=== PATIENT | male | born 1945 | race Caucasian/White ===

== ENCOUNTER 2017-03-31 01:54 | Emergency (ER) | payer MEDICARE ==
[~2017-03-31 01:54] MED LIST: ASPI325T24 PO; CARV12.5 PO; CHOL50006 PO; ENAL5TAB98 PO; PRED1%O RIGHT EYE; PROT40TA PO; ZOCO40TA PO; ZYRT10TA12 PO
[2017-03-31 01:59] VITALS: BP 164/88; PULSE 82; RESP 16; TEMP 98; O2SAT 96
[2017-03-31] MEDS ORDERED: LEVO50TA4 PO (02:20)
[2017-03-31] MEDS ORDERED: CETI10CA3 PO (02:20)
[2017-03-31] MEDS ORDERED: ESSE250T PO (02:20)
[2017-03-31] MEDS ORDERED: LOSA25TA PO (02:20)
[2017-03-31] MEDS ORDERED: VITA1000 PO (02:20)
[2017-03-31] MEDS ORDERED: CARV12.52 PO (02:20)
[2017-03-31] MEDS ORDERED: PANT40TA3 PO (02:20)
[2017-03-31] MEDS ORDERED: ASPI-183 PO (02:20)
[2017-03-31] MEDS ORDERED: LEVO25TA4 PO (02:20)
[2017-03-31] MEDS ORDERED: COQ150CA PO (02:20)
[2017-03-31] MEDS ORDERED: oxyCODONE/ACETAMINOPHEN 5 MG/325 MG TAB PO ONE (02:30)
--- NOTE | 2017-03-31 02:37 | PD ---
HPI Chief Complaint: Musculoskeletal Complaint Time Seen by Provider: 02:20 Travel History International Travel<30 days: No Contact w/Intl Traveler<30days: No Traveled to known affect area: No History of Present Illness HPI 71yo M with PMH of CAD here with c/o left knee pain that radiates up to his inner thigh. States pain has been there for a few days but worst today. Also feels a little pain in left hip. Pain is sharp, worst with movement. Pt does have a recent drive from [place] 3 weeks ago. Denies any fever, cough, chest pain, sob, n/v, abdominal pain, focal weakness or numbness, fall or trauma. Said went to [facility] 3 days ago and said he had restless leg syndrome. Said percocet used to work but he did not have any. 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) Cardiac Catheterization: Yes Cardiovascular Problems: Yes ([place], [place]) High Cholesterol: Yes Chemotherapy: No Congestive Heart Failure: No Diabetes: No Endocrine: Yes Gastrointestinal Disorders: Yes (REFLUX) GERD: Yes Genitourinary: No Hepatitis: No Hiatal Hernia: No Hypertension: Yes Immune Disorder: No Musculoskeletal: Yes (ARTHRITIS) Neurologic: No Psychiatric: No Reproductive: Yes Respiratory: No Myocardial Infarction: Yes Radiation Therapy: No Thyroid Disease: Yes Ulcer: No Past Surgical History Abdominal Surgery: No Appendectomy: No Body Medical Devices: STERNAL WIRE CABG Cardiac Surgery: Yes (CABG) Cholecystectomy: No Coronary Artery Bypass Graft: Yes (5 VESSELS 2008) Ear Surgery: No Endocrine Surgery: No Eye Surgery: No Genitourinary Surgery: No Gynecologic Surgery: No Oral Surgery: Yes (BROKEN NOSE) Thoracic Surgery: No Family History Family Myocardial Infarction: Yes (FATHER SIDE OF FAMILY BUT NOT FATHER, SIBLINGS) Social History Alcohol Use: No Tobacco Use: Yes (CHEWS TOBACCO) Substance Use: No Allergies-Medications (Allergen,Severity, Reaction): Coded Allergies: FD and C yellow no.10 (quinoline ye (Unverified Allergy, Severe, 03/31/17) HIVES FD and C yellow no.6 (sunset yellow (Unverified Allergy, Severe, 03/31/17) HIVES atorvastatin (Unverified Allergy, Severe, 03/31/17) MUSCLE CRAMPS IN LEGS iodine (Unverified Allergy, Severe, 03/31/17) SOLUTION potassium iodide (Unverified Allergy, Severe, 03/31/17) SOLUTION povidone-iodine (Unverified Allergy, Severe, 03/31/17) SOLUTION sodium iodide (Unverified Allergy, Severe, 03/31/17) SOLUTION sodium iodide (Unverified Allergy, Severe, 03/31/17) SOLUTION shellfish derived (Unverified Allergy, Unknown, 03/31/17) VOMITING Uncoded Allergies: CRESTOR (Allergy, Severe, 05/15/13) LEG CRAMPS WOOL (Allergy, Severe, HIVES, 05/15/13) Reported Meds & Prescriptions Reported Meds & Active Scripts Active Reported Zyrtec (Cetirizine HCl) 10 Mg Capsule 10 Mg PO DAILY Coq10 (Coenzyme Q10 (Ubidecarenone)) 50 Mg Cap 100 Mg PO EVERY OTHER DAY Vitamin D-1000 (Cholecalciferol) 1,000 Unit Tab 1,000 Units PO DAILY Pantoprazole (Pantoprazole Sodium) 40 Mg Tab 40 Mg PO BID Magnesium 250 Mg Tab 250 Mg PO DAILY Carvedilol 12.5 Mg Tab 12.5 Mg PO BID Losartan (Losartan Potassium) 25 Mg Tab 25 Mg PO DAILY Levothyroxine (Levothyroxine Sodium) 25 Mcg Tab 25 Mcg PO EVERY OTHER DAY Levothyroxine (Levothyroxine Sodium) 50 Mcg Tab 50 Mcg PO EVERY OTHER DAY Aspirin 325 Mg Tab 325 Mg PO DAILY Review of Systems Except as stated in HPI: all other systems reviewed are Neg Physical Exam Narrative GENERAL: 71yo M in mild distress. SKIN: Focused skin assessment warm/dry. HEAD: Atraumatic. Normocephalic. EYES: Pupils equal and round. No scleral icterus. No injection or drainage. ENT: No nasal bleeding or discharge. Mucous membranes pink and moist. NECK: Trachea midline. No JVD. CARDIOVASCULAR: Regular rate and rhythm. No murmur appreciated. RESPIRATORY: No accessory muscle use. Clear to auscultation. Breath sounds equal bilaterally. GASTROINTESTINAL: Abdomen soft, non-tender, nondistended. MUSCULOSKELETAL: LLE: Mild ttp left hip. +TTP medial thigh and anterior thigh. No edema, erythema, or crepitus. Compartments soft. Good range of motion in left hip and knee. Mild ttp knee. No erythema, edema on knee. Distal pulses intact. Sensation intact. NEUROLOGICAL: Awake and alert. No obvious cranial nerve deficits. Motor grossly within normal limits. Normal speech. PSYCHIATRIC: Appropriate mood and affect; insight and judgment normal. Data Data Last Documented VS Vital Signs Date Time Temp Pulse Resp B/P (MAP) Pulse Ox O2 Delivery O2 Flow Rate FiO2 03/31/17 01:59 98.0 82 16 164/88 (113) 96 Room Air Orders Orders Us Leg Venous Doppler (03/31/17 ) Hip, Uni(Ap&Lat) W Ap Pelvis (03/31/17 ) Knee, Ltd (1 Or 2vws) (03/31/17 ) Oxycodone-Acetamin 5-325 Mg (Percocet (03/31/17 02:30) Ketorolac Inj (Toradol Inj) (03/31/17 04:00) MDM Medical Decision Making Medical Screen Exam Complete: Yes Emergency Medical Condition: Yes Differential Diagnosis Musculoskeletal pain vs. DVT vs. osteoarthritis vs. restless leg syndrome Narrative Course 71yo nontoxic appearing male with left knee pain radiating to left inner thigh. Impression is more musculoskeletal. No signs of infection in left knee. Xray left hip showed no fracture. Osteoarthritis. Xray left knee showed mild arthritis. No fracture or subluxation. Pt did have a recent travel history so will obtain US to r/o DVT. US left lower extremity showed no DVT. Pt's pain improved with toradol and percocet but still with pain when he moves. Informed pt to follow up with orthopedic surgery if pain persists in knee. Pt has no trauma, and no neurologic deficits. Diagnosis Primary Impression: Left leg pain Referrals: Rodrigo Cali MD as needed Patient Instructions: General Instructions Departure Forms: Tests/Procedures Additional Instructions: Please follow up with primary care physician or orthopedic surgery clinic if pain persists. Return to the ED if symptoms worsen. Med/Other Pt SpecificInfo: Prescription(s) given Scripts Acetaminophen (Tylenol) 325 Mg Tab 325 MG PO Q4H Y for PAIN SCALE 1 TO 4, #20 TAB 0 Refills Prov: Kymberly Jones DO 03/31/17 Disposition: 01 DISCHARGE HOME Condition: Stable Kymberly Jones DO Mar 31, 2017 02:37
--- NOTE | 2017-03-31 03:09 | RADRPT ---
EXAM DATE/TIME: 03/31/2017 02:45 [facility] COMPARISON: No previous studies available for comparison. INDICATIONS : Left knee pain. MEDICAL HISTORY : Myocardial infarction. SURGICAL HISTORY : CABG. ENCOUNTER: Initial ACUITY: 1 day PAIN SCORE: 10/10 LOCATION: Left knee FINDINGS: Mild osteoarthritis is seen of all 3 compartments. No fracture or subluxation of the left knee. No pe rceptible joint effusion. Apparent 5 mm posterior osteochondral body. It may be in a popliteal cyst. CONCLUSION: Mild osteoarthritis. No fracture or subluxation. Mark Prajapati MD on March 31, 2017 at 3:06 Board Certified Radiologist. This report was verified electronically.
--- NOTE | 2017-03-31 03:12 | RADRPT ---
EXAM DATE/TIME: 03/31/2017 02:45 [facility] COMPARISON: No previous studies available for comparison. INDICATIONS : Left hip pain. MEDICAL HISTORY : Myocardial infarction. SURGICAL HISTORY : CABG. ENCOUNTER: Initial ACUITY: 1 day PAIN SCORE: 10/10 LOCATION: Left hip FINDINGS: Bony pelvis is intact and has normal morphology. There is bilateral hip osteoarthritis, mild to moder ate on the right and mild on the left. No fracture or subluxation. Radiographic appearance of the soft tissues within normal limits. CONCLUSION: No fractures or subluxations. Mild to moderate right and mild left hip ost or arthritis. Mark Prajapati MD on March 31, 2017 at 3:09 Board Certified Radiologist. This report was verified electronically.
[2017-03-31] MEDS ORDERED: KETOROLAC TROMETHAMINE 60 MG/2 ML (IM) VIAL IM ONE (04:00)
--- NOTE | 2017-03-31 04:01 | RADRPT ---
EXAM DATE/TIME: 03/31/2017 03:34 [facility] COMPARISON: No previous studies available for comparison. INDICATIONS : Left leg pain. MEDICAL HISTORY : Hypercholesterolemia. Gastroesophageal reflux disease. Hypertension. Cataracts. Afib. Thyroid dise ase. Myocardial infarction. Coronary artery disease. Anticoagulant therapy. Arthritis. Anxiety. Skin cancer. SURGICAL HISTORY : CABG Broken nose repair. Fingers amputated. ENCOUNTER: Initial ACUITY: 1 day PAIN SCORE: 4/10 LOCATION: Left leg. TECHNIQUE: Venous ultrasound of the leg was performed from the inguinal ligament to the proximal calf. Real-eunice e, color Doppler and spectral tracing, compression and augmentation techniques were used. FINDINGS: There is normal compressibility of the deep venous system from the inguinal region to the proximal ca lf. No echogenic clot is seen in the lumen of the common femoral, femoral, popliteal, and posterior tibial veins. There is a normal response of the venous system to proximal and distal augmentation an d respiration. CONCLUSION: No left lower extremity venous thrombosis. Mark Prajapati MD on March 31, 2017 at 3:59 Board Certified Radiologist. This report was verified electronically.
[2017-03-31] MEDS ORDERED: TYLE325T PO (04:14)
== END 2017-03-31 04:43 | disposition home or self-care (01) ==
LOC: NEPE 01:54
DX: M79.605 Pain in left leg (principal); M25.552 Pain in left hip; G25.81 Restless legs syndrome; M19.90 Unspecified osteoarthritis, unspecified site; I48.91 Unspecified atrial fibrillation; E78.00 Pure hypercholesterolemia, unspecified; K21.9 Gastro-esophageal reflux disease without esophagitis; I10 Essential (primary) hypertension; E07.9 Disorder of thyroid, unspecified
CPT/HCPCS: 73502; 73560; 93971; 96372; 99285; J1885

== ENCOUNTER 2017-05-21 00:46 | Observation (INO) | payer MEDICARE ==
[2017-05-21] VITALS (15 sets, daily range): BP systolic 102–174; BP diastolic 51–96; PULSE 60–79; RESP 16–20; TEMP 95.9–98.9; O2SAT 95–97
[~2017-05-21] VITALS: Ht 172.7 cm; Wt 88.0 kg
[~2017-05-21 00:46] MED LIST changes: +ASPI-183 PO; -ASPI325T24 PO; -CARV12.5 PO; +CARV12.52 PO; +CETI10CA3 PO; -CHOL50006 PO; +COQ150CA PO; -ENAL5TAB98 PO; +ESSE250T PO; +LEVO25TA4 PO; +LEVO50TA4 PO; +LOSA25TA PO; +PANT40TA3 PO; -PRED1%O RIGHT EYE; -PROT40TA PO; +TYLE325T PO; +VITA1000 PO; -ZOCO40TA PO; -ZYRT10TA12 PO
--- NOTE | 2017-05-21 01:27 | PD ---
HPI Chief Complaint: Chest Pain Time Seen by Provider: 01:10 Travel History International Travel<30 days: No Contact w/Intl Traveler<30days: No Traveled to known affect area: No History of Present Illness HPI 71yo M with PMH of CAD s/p cardiac bypass presents to the ED with c/o intermittent chest pain for 1 day. Said it goes from left shoulder to left chest and is intermittent. Pain is dull, lasting seconds at a time. Currently chest pain free. Sometimes it is on right side but mostly left. Associated with some sob and diaphoresis. Denies any fever, n/v, abdominal pain, focal weakness or numbness. Also complained of mild occipital headache for 2-3 hours today. Said he normally does not get headaches. However, he checked his blood pressure and it is elevated and he did not take his carvedilol tonight. Denies any trauma, visual changes. 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 Last stress test is a few years ago. Pt took his aspirin today. 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) Cardiac Catheterization: Yes Cardiovascular Problems: Yes ([place], [place]) High Cholesterol: Yes Chemotherapy: No Congestive Heart Failure: No Diabetes: No Endocrine: Yes Gastrointestinal Disorders: Yes (REFLUX) GERD: Yes Genitourinary: No Hepatitis: No Hiatal Hernia: No Hypertension: Yes Immune Disorder: No Musculoskeletal: Yes (ARTHRITIS) Neurologic: No Psychiatric: No Reproductive: Yes Respiratory: No Myocardial Infarction: Yes Radiation Therapy: No Thyroid Disease: Yes Ulcer: No Tetanus Vaccination: < 5 Years Influenza Vaccination: No Past Surgical History Abdominal Surgery: No Appendectomy: No Body Medical Devices: STERNAL WIRE CABG Cardiac Surgery: Yes (CABG) Cholecystectomy: No Coronary Artery Bypass Graft: Yes (5 VESSELS 2008) Ear Surgery: No Endocrine Surgery: No Eye Surgery: No Genitourinary Surgery: No Gynecologic Surgery: No Oral Surgery: Yes (BROKEN NOSE, ) Thoracic Surgery: No Other Surgery: Yes (angioplasty ) Family History Family Myocardial Infarction: Yes (FATHER SIDE OF FAMILY BUT NOT FATHER, SIBLINGS) Social History Alcohol Use: No Tobacco Use: Yes (CHEWS TOBACCO) Substance Use: No Allergies-Medications (Allergen,Severity, Reaction): Coded Allergies: FD and C yellow no.10 (quinoline ye (Unverified Allergy, Severe, 03/31/17) HIVES FD and C yellow no.6 (sunset yellow (Unverified Allergy, Severe, 03/31/17) HIVES atorvastatin (Unverified Allergy, Severe, 03/31/17) MUSCLE CRAMPS IN LEGS iodine (Unverified Allergy, Severe, 03/31/17) SOLUTION potassium iodide (Unverified Allergy, Severe, 03/31/17) SOLUTION povidone-iodine (Unverified Allergy, Severe, 03/31/17) SOLUTION sodium iodide (Unverified Allergy, Severe, 03/31/17) SOLUTION sodium iodide (Unverified Allergy, Severe, 03/31/17) SOLUTION shellfish derived (Unverified Allergy, Unknown, 03/31/17) VOMITING Uncoded Allergies: CRESTOR (Allergy, Severe, 05/15/13) LEG CRAMPS WOOL (Allergy, Severe, HIVES, 05/15/13) Reported Meds & Prescriptions Reported Meds & Active Scripts Active Tylenol (Acetaminophen) 325 Mg Tab 325 Mg PO Q4H PRN Reported Diphenhydramine (Diphenhydramine HCl) 25 Mg Cap 25 Mg PO HS PRN Coq10 (Coenzyme Q10 (Ubidecarenone)) 50 Mg Cap 100 Mg PO EVERY OTHER DAY Vitamin D-1000 (Cholecalciferol) 1,000 Unit Tab 1,000 Units PO DAILY Pantoprazole (Pantoprazole Sodium) 40 Mg Tab 40 Mg PO BID Carvedilol 12.5 Mg Tab 12.5 Mg PO BID Losartan (Losartan Potassium) 25 Mg Tab 25 Mg PO DAILY Levothyroxine (Levothyroxine Sodium) 25 Mcg Tab 25 Mcg PO EVERY OTHER DAY Levothyroxine (Levothyroxine Sodium) 50 Mcg Tab 50 Mcg PO EVERY OTHER DAY Aspirin 325 Mg Tab 325 Mg PO DAILY Review of Systems Except as stated in HPI: all other systems reviewed are Neg Physical Exam Narrative GENERAL: 71yo M in mild distress. SKIN: Focused skin assessment warm/dry. HEAD: Atraumatic. Normocephalic. EYES: Pupils equal and round at 3mm bilaterally. EOMI. ENT: No nasal bleeding or discharge. Mucous membranes pink and moist. NECK: Trachea midline. No JVD. No nuchal rigidity. CARDIOVASCULAR: Regular rate and rhythm. No murmur appreciated. RESPIRATORY: No accessory muscle use. Clear to auscultation. Breath sounds equal bilaterally. GASTROINTESTINAL: Abdomen soft, non-tender, nondistended. MUSCULOSKELETAL: No obvious deformities. No clubbing. No cyanosis. No edema. NEUROLOGICAL: Awake and alert. No obvious cranial nerve deficits. Motor grossly within normal limits. Normal speech. PSYCHIATRIC: Appropriate mood and affect; insight and judgment normal. Data Data Last Documented VS Vital Signs Date Time Temp Pulse Resp B/P (MAP) Pulse Ox O2 Delivery O2 Flow Rate FiO2 05/21/17 02:00 68 16 143/78 (99) 95 Room Air 05/21/17 00:[address] Brain W/O Iv Contrast(Rout) (05/21/17 ) Basic Metabolic Panel (Bmp) (05/21/17 01:21) Complete Blood Count With Diff (05/21/17 01:21) Magnesium (Mg) (05/21/17 01:21) Prothrombin Time / Inr (Pt) (05/21/17 01:21) Act Partial Throm Time (Ptt) (05/21/17 01:21) Troponin I (05/21/17 01:21) Chest, Single Ap (05/21/17 01:21) Carvedilol (Coreg) (05/21/17 01:30) Admit Order (Ed Use Only) (05/21/17 02:53) Labs Laboratory Tests Test 05/21/17 01:18 White Blood Count 7.9 TH/MM3 Red Blood Count 4.91 MIL/MM3 Hemoglobin 15.1 GM/DL Hematocrit 43.5 % Mean Corpuscular Volume 88.5 FL Mean Corpuscular Hemoglobin 30.7 PG Mean Corpuscular Hemoglobin Concent 34.7 % Red Cell Distribution Width 14.1 % Platelet Count 215 TH/MM3 Mean Platelet Volume 8.5 FL Neutrophils (%) (Auto) 52.7 % Lymphocytes (%) (Auto) 26.7 % Monocytes (%) (Auto) 6.4 % Eosinophils (%) (Auto) 13.4 % Basophils (%) (Auto) 0.8 % Neutrophils # (Auto) 4.2 TH/MM3 Lymphocytes # (Auto) 2.1 TH/MM3 Monocytes # (Auto) 0.5 TH/MM3 Eosinophils # (Auto) 1.1 TH/MM3 Basophils # (Auto) 0.1 TH/MM3 CBC Comment DIFF FINAL Differential Comment Prothrombin Time 10.7 SEC Prothromb Time International Ratio 1.1 RATIO Activated Partial Thromboplast Time 26.4 SEC Blood Urea Nitrogen 15 MG/DL Creatinine 1.21 MG/DL Random Glucose 100 MG/DL Calcium Level 9.0 MG/DL Magnesium Level 2.1 MG/DL Sodium Level 138 MEQ/L Potassium Level 3.7 MEQ/L Chloride Level 104 MEQ/L Carbon Dioxide Level 26.1 MEQ/L Anion Gap 8 MEQ/L Estimat Glomerular Filtration Rate 59 ML/MIN Troponin I LESS THAN 0.02 NG/ML MDM Medical Decision Making Medical Screen Exam Complete: Yes Emergency Medical Condition: Yes Interpretation(s) EKG: NSR 75bpm. Normal axis. TWI V2. Q wave V2. Mild ST depression V3. Differential Diagnosis ACS vs. Musculoskeletal pain vs. GERD vs. tension headache vs. ICH vs. hypertensive emergency Narrative Course 71yo M with left sided chest pain that is intermittent. It does seem atypical but pt has CAD with CABG and has not had any stress test so will admit to chest pain center. Labs reviewed, no leukocytosis. Troponin negative. CXR negative. CT brain negative. Pt does not want anything for pain and said headache resolved. Pt given his carvedilol because he was due for it. Blood pressure improved after carvedilol. Diagnosis Primary Impression: Chest pain Qualified Codes: R07.9 - Chest pain, unspecified Admitting Information Admitting Physician Requests: Kymberly Perkins DO May 21, 2017 01:27
[2017-05-21] MEDS ORDERED: CARVEDILOL 12.5 MG TAB PO ONE (01:30)
--- NOTE | 2017-05-21 01:53 | RADRPT ---
EXAM DATE/TIME: 05/21/2017 01:33 [facility] COMPARISON: No previous studies available for comparison. INDICATIONS : Intermittent chest pain. MEDICAL HISTORY : Gastroesophageal reflux disease. Hypertension Hypercholesterolemia. A-fib SURGICAL HISTORY : CABG. ENCOUNTER: Initial ACUITY: 1 day PAIN SCORE: 3/10 LOCATION: Bilateral chest FINDINGS: A single view of the chest demonstrates the lungs to be symmetrically aerated without evidence of mas s, infiltrate or effusion. The cardiomediastinal contours are unremarkable. Osseous structures are intact. CONCLUSION: No acute disease. Mark Segura MD on May 21, 2017 at 1:51 Board Certified Radiologist. This report was verified electronically.
--- NOTE | 2017-05-21 01:55 | RADRPT ---
EXAM DATE/TIME: 05/21/2017 01:26 [facility] COMPARISON: No previous studies available for comparison. INDICATIONS : Headaches with high blood pressure. RADIATION DOSE: 56.35 CTDIvol (mGy) MEDICAL HISTORY : Cardiovascular disease. Hypertension. Gastroesophageal reflux disease. SURGICAL HISTORY : CABG ENCOUNTER: Initial ACUITY: 1 day PAIN SCALE: 6/10 LOCATION: cranial TECHNIQUE: Multiple contiguous axial images were obtained of the head. Using automated exposure control and adj ustment of the mA and/or kV according to patient size, radiation dose was kept as low as reasonably a chievable to obtain optimal diagnostic quality images. DICOM format image data is available electro nically for review and comparison. FINDINGS: CEREBRUM: The ventricles are normal for age. No evidence of midline shift, mass lesion, hemorrhage or acute in farction. No extra-axial fluid collections are seen. POSTERIOR FOSSA: The cerebellum and brainstem are intact. The 4th ventricle is midline. The cerebellopontine angle i s unremarkable. EXTRACRANIAL: The visualized portion of the orbits is intact. SKULL: The calvaria is intact. No evidence of skull fracture. CONCLUSION: Normal examination. Mark Segura MD on May 21, 2017 at 1:52 Board Certified Radiologist. This report was verified electronically.
[2017-05-21 02:25] LABS: AUTOMATED NEUTROPHIL # 4.2 TH/MM3 (1.8-7.7); BASOPHIL # 0.1 TH/MM3 (0-0.2); BASOPHIL % 0.8 % (0.0-2.0); EOSINOPHIL # 1.1 TH/MM3 (0-0.4); EOSINOPHIL % 13.4 % (0.0-4.0); HEMATOCRIT 43.5 % (39.0-51.0); HEMOGLOBIN 15.1 GM/DL (13.0-17.0); LYMPH % 26.7 % (9.0-44.0); LYMPHOCYTE # 2.1 TH/MM3 (1.0-4.8); MEAN CELL VOLUME 88.5 FL (80.0-100.0); MEAN CORPUSCULAR HEMOGLOBIN 30.7 PG (27.0-34.0); MEAN CORPUSCULAR HGB CONC 34.7 % (32.0-36.0); MEAN PLATELET VOLUME 8.5 FL (7.0-11.0); MONO % 6.4 % (0.0-8.0); MONOCYTE # 0.5 TH/MM3 (0-0.9); NEUT % 52.7 % (16.0-70.0); PLATELET COUNT 215 TH/MM3 (150-450); RED BLOOD COUNT 4.91 MIL/MM3 (4.50-5.90); RED CELL DISTRIBUTION WIDTH 14.1 % (11.6-17.2); WHITE BLOOD COUNT 7.9 TH/MM3 (4.0-11.0)
[2017-05-21 02:45] LABS: BICARBONATE 26.1 MEQ/L (21.0-32.0); BLOOD UREA NITROGEN 15 MG/DL (7-18); CHLORIDE 104 MEQ/L (98-107); CREATININE 1.21 MG/DL (0.60-1.30); GLOMERULAR FILTRATION RATE 59 ML/MIN (>89); GLUCOSE,RANDOM 100 MG/DL (74-106); INTERNATIONAL NORMALIZED RATIO 1.1 RATIO; MAGNESIUM 2.1 MG/DL (1.5-2.5); PROTHROMBIN TIME - PATIENT 10.7 SEC (9.8-11.6); SODIUM (NA) 138 MEQ/L (136-145)
[2017-05-21 02:48] LABS: TROPONIN I LESS THAN 0.02 NG/ML (0.02-0.05)
[2017-05-21] MEDS ORDERED: DIPH25CA PO (03:24)
[2017-05-21] MEDS ORDERED: SODIUM CHLORIDE 0.9% FLUSH 10 ML FLUSH IV FLUSH PRN (03:45)
[2017-05-21 05:15] LABS: TROPONIN I LESS THAN 0.02 NG/ML (0.02-0.05)
[2017-05-21 07:46] LABS: TROPONIN I LESS THAN 0.02 NG/ML (0.02-0.05)
[2017-05-21] MEDS ORDERED: ASPIRIN 325 MG TAB PO SCH (09:00)
[2017-05-21] MEDS ORDERED: SODIUM CHLORIDE 0.9% FLUSH 10 ML FLUSH IV FLUSH SCH (09:00)
[2017-05-21] MEDS ORDERED: LOSARTAN 25 MG TAB PO SCH (10:00)
[2017-05-21] MEDS ORDERED: PANTOPRAZOLE SOD 40 MG DELAYED RELEASE TAB PO SCH (10:00)
[2017-05-21] MEDS ORDERED: CARVEDILOL 12.5 MG TAB PO SCH (10:00)
--- NOTE | 2017-05-21 10:11 | HHI.HP ---
[facility] Primary Care Physician Kali Carter MD Chief Complaint Chest pain History of Present Illness This is a 71-year-old male with history of CAD with a 5 vessel bypass in 2008 that presents to ED via private vehicle with a complaint of chest discomfort. Patient states that yesterday morning he began having intermittent left upper chest discomfort. Lortab describing the characteristic of the discomfort. States it would last for a few seconds but reoccurred 8-10 times. States his left shoulder also seems or more when he moves his left arm. Recalls being a little short of breath. No nausea diaphoresis. Found nothing in particular that would bring on the discomfort. He leaves his last stress test was a couple years ago. He follows Dr. Carter. His symptoms that led to his bypass or different than what he had yesterday. He states that at that time he had a normal exercise treadmill stress test and was having a burning sensation in the center of his chest. Denies recent illnesses. Denies fevers or chills Review of Systems General: Patient denies fevers, chills recent, and recent travel HEENT: Complained of occipital headache while in the ED. Patient denies sore throat, difficulty swallowing. Cardiovascular: Has the chest discomfort as mentioned above. Denies sensation of heart beating rapidly or irregularly. No syncope. Denies diaphoresis. Respiratory: Mild shortness of breath. Denies inspirational chest discomfort. Denies coughing wheezing or hemoptysis. GI: Patient denies nausea, vomiting, diarrhea, abdominal pain, bloody stools. Musculoskeletal: Patient denies joint pain or edema. Denies calf pain or edema. Neurovascular: Complained of headache and occipital region while he was in the ED. Patient denies numbness, tingling, weakness in extremities. Endocrine: Denies polyuria and polydipsia. Hematologic: Denies easy bruising. Skin: Denies rash or itching. Past Family Social History Allergies: Coded Allergies: FD and C yellow no.10 (quinoline ye (Unverified Allergy, Severe, 03/31/17) HIVES FD and C yellow no.6 (sunset yellow (Unverified Allergy, Severe, 03/31/17) HIVES atorvastatin (Unverified Allergy, Severe, 03/31/17) MUSCLE CRAMPS IN LEGS iodine (Unverified Allergy, Severe, 03/31/17) SOLUTION potassium iodide (Unverified Allergy, Severe, 03/31/17) SOLUTION povidone-iodine (Unverified Allergy, Severe, 03/31/17) SOLUTION sodium iodide (Unverified Allergy, Severe, 03/31/17) SOLUTION sodium iodide (Unverified Allergy, Severe, 03/31/17) SOLUTION shellfish derived (Unverified Allergy, Unknown, 03/31/17) VOMITING Uncoded Allergies: CRESTOR (Allergy, Severe, 05/15/13) LEG CRAMPS WOOL (Allergy, Severe, HIVES, 05/15/13) Past Medical History CAD with a 5 vessel bypass in 2008. Hypertension, hyperlipidemia however he does not tolerate statins, GERD, and hypothyroidism. Past Surgical History 5 vessel bypass in 2008. Reported Medications Reported Meds & Active Scripts Active Tylenol (Acetaminophen) 325 Mg Tab 325 Mg PO Q4H PRN Reported Diphenhydramine (Diphenhydramine HCl) 25 Mg Cap 25 Mg PO HS PRN Coq10 (Coenzyme Q10 (Ubidecarenone)) 50 Mg Cap 100 Mg PO EVERY OTHER DAY Vitamin D-1000 (Cholecalciferol) 1,000 Unit Tab 1,000 Units PO DAILY Pantoprazole (Pantoprazole Sodium) 40 Mg Tab 40 Mg PO BID Carvedilol 12.5 Mg Tab 12.5 Mg PO BID Losartan (Losartan Potassium) 25 Mg Tab 25 Mg PO DAILY Levothyroxine (Levothyroxine Sodium) 25 Mcg Tab 25 Mcg PO EVERY OTHER DAY Levothyroxine (Levothyroxine Sodium) 50 Mcg Tab 50 Mcg PO EVERY OTHER DAY Aspirin 325 Mg Tab 325 Mg PO DAILY Active Ordered Medications Current Medications Medications (Trade) Dose Ordered Sig/Nando Route Start Time Stop Time Status Last Admin (NS Flush) 2 ml UNSCH PRN IV FLUSH 05/21/17 03:45 (NS Flush) 2 ml BID IV FLUSH 05/21/17 09:00 05/21/17 08:25 (Aspirin) 325 mg DAILY PO 05/21/17 09:00 (Coreg) 12.5 mg BID PO 05/21/17 10:00 (Cozaar) 25 mg DAILY PO 05/21/17 10:00 (Protonix) 40 mg BID PO 05/21/17 10:00 Family History Denies family history of CAD. Social History Quit smoking in 1976. Prior that he smoked about 20 years. Denies alcohol or illicit drugs. Physical Exam Vital Signs Vital Signs Date Time Temp Pulse Resp B/P (MAP) Pulse Ox O2 Delivery O2 Flow Rate FiO2 05/21/17 08:00 96.2 60 20 102/51 (68) 95 05/21/17 07:00 65 05/21/17 05:28 98.9 61 18 120/59 (79) 95 05/21/17 05:04 60 05/21/17 04:09 63 16 128/68 (88) 98 05/21/17 04:00 66 17 139/72 (94) 96 Room Air 05/21/17 03:52 95 05/21/17 03:00 68 16 136/72 (93) 97 Room Air 05/21/17 02:00 68 16 143/78 (99) 95 Room Air 05/21/17 01:47 71 17 130/72 (91) 95 Room Air 05/21/17 01:15 Room Air 05/21/17 01:15 75 20 174/96 (122) 95 Room Air 05/21/17 00:49 98.5 79 16 160/84 (109) 97 Room Air Physical Exam GENERAL: This is a well-nourished, well-developed patient, in no apparent distress. Patient speaks in clear complete sentences. Patient is pleasant. HEENT: Head is atraumatic and normocephalic. Neck is supple without lymphadenopathy and trachea is midline. No JVD or carotid bruits. CARDIOVASCULAR: Regular rate and rhythm without murmurs, gallops, or rubs. RESPIRATORY: Clear to auscultation. Breath sounds equal bilaterally. No wheezes , rales, or rhonchi. Left upper chest wall is tender reproducing the discomfort he has been having. Also the discomfort is worsened with movement of the left arm. No use of accessory muscles. GASTROINTESTINAL: Abdomen is nontender, nondistended. Abdomen soft. No obvious pulsatile mass or bruit. No CVA tenderness. Strong femoral pulses bilaterally. Normal bowel sounds in all quadrants. MUSCULOSKELETAL: Patient is moving upper and lower extremities freely. No calf tenderness or edema, no Homans sign. Strong pulses in upper and lower extremities. NEUROLOGICAL: Patient is alert and oriented. Cranial nerves 2-12 are grossly intact. No focal deficits and speech is clear. SKIN: No rash and turgor is normal. Laboratory Laboratory Tests Test 05/21/17 01:18 05/21/17 04:20 05/21/17 07:00 White Blood Count 7.9 Red Blood Count 4.91 Hemoglobin 15.1 Hematocrit 43.5 Mean Corpuscular Volume 88.5 Mean Corpuscular Hemoglobin 30.7 Mean Corpuscular Hemoglobin Concent 34.7 Red Cell Distribution Width 14.1 Platelet Count 215 Mean Platelet Volume 8.5 Neutrophils (%) (Auto) 52.7 Lymphocytes (%) (Auto) 26.7 Monocytes (%) (Auto) 6.4 Eosinophils (%) (Auto) 13.4 Basophils (%) (Auto) 0.8 Neutrophils # (Auto) 4.2 Lymphocytes # (Auto) 2.1 Monocytes # (Auto) 0.5 Eosinophils # (Auto) 1.1 Basophils # (Auto) 0.1 CBC Comment DIFF FINAL Differential Comment Prothrombin Time 10.7 Prothromb Time International Ratio 1.1 Activated Partial Thromboplast Time 26.4 Blood Urea Nitrogen 15 Creatinine 1.21 Random Glucose 100 Calcium Level 9.0 Magnesium Level 2.1 Sodium Level 138 Potassium Level 3.7 Chloride Level 104 Carbon Dioxide Level 26.1 Anion Gap 8 Estimat Glomerular Filtration Rate 59 Troponin I LESS THAN 0.02 LESS THAN 0.02 LESS THAN 0.02 Total Creatine Kinase 124 135 Creatine Kinase MB 1.5 1.5 Result Diagram: 05/21/17 0118 05/21/17 0118 Imaging Last 48 hours Impressions Chest X-Ray 05/21/17 0121 Signed Impressions: Service Date/Time: Sunday, May 21, 2017 01:33 - CONCLUSION: No acute disease. Mark Segura MD Head CT 05/21/17 0000 Signed Impressions: Service Date/Time: Sunday, May 21, 2017 01:26 - CONCLUSION: Normal examination. Mark Segura MD Course EKGs are sinus rhythm with nonspecific septal T-wave changes. Caprini VTE Risk Assessment Caprini VTE Risk Assessment: Mod/High Risk (score >= 2) Caprini Risk Assessment Model Point Value = 1 Point Value = 2 Point Value = 3 Point Value = 5 Age 41-60 Minor surgery BMI > 25 kg/m2 Swollen legs Varicose veins or History of unexplained or recurrent spontaneous Oral contraceptives or hormone replacement Sepsis (< 1 month) Serious lung disease, including pneumonia (< 1 month) Abnormal pulmonary function Acute myocardial infarction Congestive heart failure (< 1 month) History of inflammatory bowel disease Medical patient at bed rest Age 61-74 Arthroscopic surgery Major open surgery (> 45 min) Laparoscopic surgery (> 45 min) Malignancy Confined to bed (> 72 hours) Immobilizing plaster cast Central venous access Age >= 75 History of VTE Family history of VTE Factor V Leiden Prothrombin [id number] Lupus anticoagulant Anticardiolipin antibodies Elevated serum homocysteine Heparin-induced thrombocytopenia Other congenital or acquired thrombophilia Stroke (< 1 month) Elective arthroplasty Hip, pelvis, or leg fracture Acute spinal cord injury (< 1 month) Prophylaxis Regimen Total Risk Factor Score Risk Level Prophylaxis Regimen 0-1 Low Early ambulation 2 Moderate Order ONE of the following: *Sequential Compression Device (SCD) *Heparin 5000 units SQ BID 3-4 Higher Order ONE of the following medications: *Heparin 5000 units SQ TID *Enoxaparin/Lovenox 40 mg SQ daily (WT < 150 kg, CrCl > 30 mL/min) *Enoxaparin/Lovenox 30 mg SQ daily (WT < 150 kg, CrCl > 10-29 mL/min) *Enoxaparin/Lovenox 30 mg SQ BID (WT < 150 kg, CrCl > 30 mL/min) AND/OR *Sequential Compression Device (SCD) 5 or more Highest Order ONE of the following medications: *Heparin 5000 units SQ TID (Preferred with Epidurals) *Enoxaparin/Lovenox 40 mg SQ daily (WT < 150 kg, CrCl > 30 mL/min) *Enoxaparin/Lovenox 30 mg SQ daily (WT < 150 kg, CrCl > 10-29 mL/min) *Enoxaparin/Lovenox 30 mg SQ BID (WT < 150 kg, CrCl > 30 mL/min) AND *Sequential Compression Device (SCD) Assessment and Plan Assessment and Plan * Chest pain: Patient has had serial cardiac enzymes and EKGs for ruling out purposes. He will be seen by Dr. Cody of cardiology and the chest pain center and will undergo a stress test and that is nonischemic U be discharged home with instructions to follow-up with his PCP and keno writer. He should return to ED for interval issues. * CAD: We'll reassess with stress testing. Continue his medications. Follow- up with cardiology. * Hyperlipidemia: Patient states he does not tolerate statins. Should further discuss this with his keno writer. * Hypertension: Continue current medication. * GERD: Continue current medication. * Hypothyroidism: Continue current medication. Patient is stable at this time. He is agreeable to this plan. Momo Milton May 21, 2017 10:11
[2017-05-21] MEDS ORDERED: REGADENOSON INJ 0.4 MG/5 ML SYR ONE (12:20)
--- NOTE | 2017-05-21 14:04 | RADRPT ---
EXAM DATE/TIME: 05/21/2017 12:07 [place] COMPARISON: No previous studies available for comparison. INDICATIONS : Chest pain. Angina. DOSE: 27.5 mCi Tc99m Myoview at stress. 8.5 mCi Tc99m Myoview at rest. 0.4 mg Lexiscan STRESS SYMPTOMS: Dyspnea and chest pain. EJECTION FRACTION: 58% MEDICAL HISTORY : Hypertension. Myocardial infarction. Cardiovascular disease SURGICAL HISTORY : CABG ENCOUNTER: Initial ACUITY: 1 day PAIN SCALE: 0/10 LOCATION: Left chest TECHNIQUE: The patient underwent pharmacologic stress with infusion of prescribed dose. Continuous ECG tracing was monitored during stress. Gated SPECT imaging was performed after stress and conventional SPECT i maging was performed at rest. The examination was performed on a SPECT/CT scanner, both attenuation and non-corrected datasets were reviewed. FINDINGS: DISTRIBUTION: The maximum perfused segment at stress is in the anterior wall wall. PERFUSION STUDY: The pattern of perfusion at stress is within normal limits. GATED STUDY: There is intact wall motion and thickening without hypokinetic or dyskinetic segments. CONCLUSION: Negative for stress-induced ischemia. RISK CATEGORY: Low (<1% Annual Mortality Rate) Devan Vinson MD FACR on May 21, 2017 at 14:01 Board Certified Radiologist. This report was verified electronically.
--- NOTE | 2017-05-21 14:25 | TR ---
Date Performed: 05/21/2017 Time Performed: 12:38:10 DOCTOR: Andi Cody DRUG LIST: CLINICAL HISTORY: REASON FOR TEST: REASON FOR ENDING: OBSERVATION: CONCLUSION: Lexiscan stress test was performed under standard four minute protocol. Radionuclid e was injected one minute prior to ending the test. No electrocardiographic abormalities were present to suggest ischemia. Nuclear imaging and interpretation are pending. COMMENTS:
--- NOTE | 2017-05-21 14:32 | EKG ---
Date Performed: 05/21/2017 Time Performed: 04:17:14 PTAGE: 71 years EKG: Sinus rhythm NORMAL ECG PREVIOUS TRACING : 05/21/2017 01.14 Since previous tracing, no significant change noted DOCTOR: Andi Cody Interpretating Date/Time 05/21/2017 14:30:20
--- NOTE | 2017-05-21 14:32 | EKG ---
Date Performed: 05/21/2017 Time Performed: 01:14:49 PTAGE: 71 years EKG: Sinus rhythm NORMAL ECG PREVIOUS TRACING : 05/30/2013 03.02 Since previous tracing, no significant change noted DOCTOR: Andi Cody Interpretating Date/Time 05/21/2017 14:31:17
--- NOTE | 2017-05-21 14:33 | HHI.DCPOC ---
Discharge Care Plan Diagnosis: (1) Chest pain (2) CAD (coronary artery disease) (3) Hx of CABG (4) Hypertension (5) Hyperlipidemia Goals to Promote Your Health * To prevent worsening of your condition and complications * To maintain your health at the optimal level Directions to Meet Your Goals Take your medications as prescribed Follow your dietary instruction Follow activity as directed Keep your appointments as scheduled Take your immunizations and boosters as scheduled If your symptoms worsen call your PCP, if no PCP go to Urgent Care Center or Emergency Room Smoking is Dangerous to Your Health. Avoid second hand smoke Call the 24-hour hour crisis hotline for domestic abuse at Momo Milton May 21, 2017 14:33
--- NOTE | 2017-05-21 14:37 | EKG ---
Date Performed: 05/21/2017 Time Performed: 07:21:51 PTAGE: 71 years EKG: Sinus rhythm WITH FIRST DEGREE AV BLOCK ABNORMAL ECG PREVIOUS TRACING : 05/21/2017 04.17 Compared to previous tracing chest lead V1 and V2 REVERSAL has been corrected. DOCTOR: Andi Cody Interpretating Date/Time 05/21/2017 14:36:57
== END 2017-05-21 15:05 | disposition home or self-care (01) ==
LOC: NEPC 00:46 → NEDA 02:56 → NEPFCDU 04:27
DX: R07.9 Chest pain, unspecified (principal); I25.10 Atherosclerotic heart disease of native coronary artery without angina pectoris; I10 Essential (primary) hypertension; E78.5 Hyperlipidemia, unspecified; E03.9 Hypothyroidism, unspecified; I25.2 Old myocardial infarction; I48.91 Unspecified atrial fibrillation; K21.9 Gastro-esophageal reflux disease without esophagitis; Z72.0 Tobacco use; Z95.1 Presence of aortocoronary bypass graft
CPT/HCPCS: 70450; 71010; 78452; 80048; 82550; 82552; 83735; 84484; 85025; 85610; 85730; 93005; 93017; 99285; A9502; G0378; J2785